=== PATIENT | male | born 1960 | race Caucasian/White ===

== ENCOUNTER 2023-04-01 11:52 | Emergency (ER) | payer OTHER ==
[~2023-04-01] VITALS: Ht 175.3 cm; Wt 102.0 kg
[2023-04-01 11:53] VITALS: BP 176/106
[2023-04-01] MEDS ORDERED: AMLODIPINE 5MG TABLET PO ONE (12:30)
[2023-04-01] MEDS ORDERED: AMLO5TAB88 MT (12:31)
== END 2023-04-01 13:09 | disposition home or self-care (01) ==
LOC: ER 11:52
DX: I10 Essential (primary) hypertension (principal); Z76.0 Encounter for issue of repeat prescription; E11.9 Type 2 diabetes mellitus without complications; E78.00 Pure hypercholesterolemia, unspecified
CPT/HCPCS: 99283